=== PATIENT | female | born 1955 | race Caucasian/White ===

== ENCOUNTER 2018-08-26 07:09 | Emergency (ER) | payer MEDICAID ==
[2018-08-26 07:15] VITALS: BP 137/60; BMI 23.1
[2018-08-26] MEDS ORDERED: HYDROCODON-ACE1 EAC7 PO (07:24)
[2018-08-26] MEDS ORDERED: AMOXICILLIN875 MG PO (07:24)
== END 2018-08-26 07:53 | disposition home or self-care (01) ==
LOC: D.ER 07:09
DX: K02.9 Dental caries, unspecified (principal); K04.7 Periapical abscess without sinus; K08.89 Other specified disorders of teeth and supporting structures